=== PATIENT | male | born 1965 | race Caucasian/White ===

== ENCOUNTER 2024-04-14 07:33 | Emergency (ER) | payer BC, SELFPAY ==
[2024-04-14 07:34] VITALS: BP 186/97; PULSE 63; RESP 19; TEMP 35.9; O2SAT 99
--- NOTE | 2024-04-14 07:45 | VDLE_ITS ---
Reason For Study: LLE Pain RIGHT LEFT CFV is compressible, spontaneous, phasic, GSV is normal. competent and demonstrates normal CFV is compressible, spontaneous, phasic, augmentation. competent, and demonstrates normal Procedure augmentation. This is a venous duplex using B-mode, color FV is compressible, spontaneous, phasic, flow and spectral Doppler. competent and demonstrates normal Exam performed portable in ED. augmentation. The exam was diagnostic. POP V is compressible, spontaneous, phasic, A preliminary report was called and/or faxed competent and demonstrates normal to ED aircraft communicator. augmentation. T/P Trunk is compressible. PTV is compressible. LT PerV is compressible. VL/Venous Duplex US, Unilateral Interpretation Summary Deep veins of the left lower extremity are patent and compressible segmentally. There is no evidence of left lower extremity deep vein thrombosis. Valvular competence appears intac t within the proximal deep venous system on the left . The left great saphenous vein appears patent a nd compressible segmentally. The right common femoral vein is patent and compressible . Ordering Physician: Axel Hernandez Referring Physician: Zaki Ponce Performed By: Richard Hunter RVT
--- NOTE | 2024-04-14 07:46 | ED.VIS.LOWEX ---
HPI History of Present Illness Chief Complaint: Lower Extremity Injury Detail of Chief Complaint: Left leg pain Informant: patient Narrative Narrative: Patient presents with left leg pain that started 2 days ago. Patient tells me he had umbilical hernia surgery that was done 8 days ago and was dying. All went well with the surgery and has been doing well. He is passing gas and having bowel movements. Patient denies any chest pain or shortness of breath. Patient states that he called his surgeon and spoke with the nurse in the office and was told to come to the ER to rule out DVT. Patient has no history of prior DVT. Denies injury to the leg. He describes the pain is from his left groin down to the medial aspect of his knee. PFSH PFSH Home Medications ?Medication ?Instructions ?Recorded ?Last Taken ?Type allopurinol 300 mg tablet 300 mg PO DAILY 04/14/24 Unknown History atenolol 100 mg tablet 100 mg PO DAILY 04/14/24 Unknown History celecoxib 200 mg capsule 200 mg PO DAILY 04/14/24 Unknown History hydrocodone-acetaminophen 5-325mg 1 tab PO Q4H PRN PRN Pain 2 days 04/14/24 Unknown Rx 5mg-325mg #14 TABLETS losartan 25 mg tablet 25 mg PO DAILY 04/14/24 Unknown History Allergy/AdvReac Type Severity Reaction Status Date / Time No Known Allergies Allergy Verified 04/14/24 07:36 Social History Smoking Status: Never smoker ROS ROS ED Review of Systems ROS Unobtainable: other Constitutional Constitutional ED: Reports lethargy; Denies chills, fever(s), sweats or weight loss Eyes Eyes: Denies blurry vision, change in vision or diplopia ENT ENT ED: Denies rhinorrhea or sore throat Cardiovascular Cardiovascular: Denies chest pain, orthopnea or racing heartbeat Respiratory/Chest Respiratory/Chest: Denies cough, dyspnea, dyspnea on exertion, orthopnea or sputum Gastrointestinal Gastrointestinal: Reports other Details: Left leg pain ; Denies abdominal pain, diarrhea, nausea or vomiting Genitourinary Genitourinary ED: Denies dysuria, hematuria or urinary frequency Musculoskeletal Musculoskeletal: Denies arthralgias, back pain, myalgias or neck pain Integumentary Denies abscess, Abrasions or rash Neurologic Neurologic: Denies headache(s) or weakness Psychiatric Psychiatric: Denies anxiety, depression or suicidal thoughts Endocrine Endocrinology: Denies polydipsia, polyphagia or polyuria Hematologic/Lymphatic Hematologic/Lymphatic: Denies easy bleeding, easy bruising or lymphadenopathy Allergic/Immunologic Allergic/Immunologic ED: Denies mouth swelling, tongue swelling or urticaria EXAM Physical Exam Const Vital Signs: 04/14/24 07:34 Temperature 96.7 F L Temperature Source Temporal Pulse Rate 63 Respiratory Rate 19 H Blood Pressure 186/97 H Blood Pressure Mean 126 Pulse Ox 99 Oxygen Delivery Method Room Air Positive well nourished and well developed General Appearance ED: well developed and NAD HEENT Reports TM's clear and moist mucous membranes normocephalic and atraumatic; Negative for trauma or tenderness Tympanic Membrane ED: Yes TM's clear Eyes PERRL and EOMs intact bilaterally General Eye ED: Negative for pale conjunctiva or scleral icterus Neck no lymphadenopathy, supple and no JVD General: Negative for tenderness Chest Wall inspection of chest normal and palpation of chest normal Chest: Negative for tenderness Resp normal respiratory effort and clear to auscultation bilaterally Effort and Inspection: Negative for respiratory distress or pain with movement Auscultation: Negative for rhonchi, wheezes or diminished lung sounds Cardio regular rate, regular rhythm, S1 normal heart sound, S2 normal heart sound and no murmurs Peripheral Pulses: pulses 2+ throughout GI normal to inspection, nondistended, normoactive bowel sounds, soft to palpation, non-tender, non-distended and no masses Back/Spine no CVA tenderness and no thoracic nor lumbar tenderness Extremity Extremity Narrative: Left leg-evaluation of the thigh this reveals some subtle firmness along the femoral vein and medial aspect of the thigh. There is no erythema or warmth. No lymphangitic streaking. Neurovascular intact distally. Do not appreciate significant swelling otherwise. General Extremety ED: Negative for edema General Extremity: Negative for edema Neuro oriented x3, CN's II-XII intact bilaterally, no sensory deficits noted and gait normal Sensorium / Orientation: awake, alert, oriented to person, oriented to place and oriented to time Motor Exam: strength 5/5 throughout and strength abnormal Psych mental status grossly normal Skin no rashes or lesions noted and no wounds MDM MDM MDM Narrative Medical decision making narrative: Patient presents to the emergency department with atraumatic left thigh pain that started 2 days ago. Patient with recent hernia repair 8 days ago. Pain feels like it starts in the groin and radiates toward the medial aspect of the knee. Denies any back pain. No weakness in extremities. Denies any testicle pain. Patient had a venous Doppler to rule out DVT which was negative for DVT. Clinically he looks well. He has normal pulses and no evidence for infection. Suspect musculoskeletal etiology of his pain and unclear if he is just compensating and gait is changed since surgery. Advised to continue with anti-inflammatory and will write a prescription for few [place] for pain. Advised to follow-up with primary care physician within next 3 to 5 days. He actually has scheduled appointment in 4 days with primary care physician and in 5 days with his surgeon. Patient advised to return if worsening pain, fever, chest pain, shortness of breath, or condition should worsen anyway. Discharge Plan Triage Chief Complaint: Lower Extremity Injury ED Provider: Axel Hernandez Dx/Rx/DC Orders Clinical Impression: Left thigh pain Instructions: ED Pain, Acute, Uncertain Cause, ED Muscle Strain, Extremity Prescriptions: New hydrocodone-acetaminophen 5-325 mg tablet 1 tab PO Q4H PRN PRN (Reason: Pain) 2 Days Qty: 14 0RF No Action celecoxib 200 mg capsule 200 mg PO DAILY atenolol 100 mg tablet 100 mg PO DAILY losartan 25 mg tablet 25 mg PO DAILY allopurinol 300 mg tablet 300 mg PO DAILY Primary Care Provider: Zaki Ponce Referrals: Zaki Ponce DO [Primary Care Provider] - 3-5 Days Print Language: [place] Disposition Disposition: Home, Self Care
== END 2024-04-14 09:05 | disposition home or self-care (01) ==
PROVIDERS: Emergency Provider Emergency Medicine; PCP Family Medicine; Visit Provider Emergency Medicine
DX: M79.652 Pain in left thigh (principal)
CPT/HCPCS: 93971; 99282